=== PATIENT | female | born 1955 | race Caucasian/White ===

== ENCOUNTER 2020-03-24 05:45 | Day surgery (SDC) | payer OTHER ==
--- NOTE | 2020-03-20 11:15 | RAD REPORT ---
EXAM DESCRIPTION: RAD - Chest Pa And Lat (2 Views) - 03/20/2020 10:33 am CLINICAL HISTORY: pre op Chest pain. COMPARISON: CHEST SINGLE VIEW dated 01/25/2015; CHEST PA AND LAT 2 VIEW dated 02/08/2014; CHEST PA AND LAT 2 VIEW dated 06/07/2013; CHEST SINGLE VIEW dated 02/12/2010 FINDINGS: The lungs are mildly emphysematous but clear. The heart is normal in size. No displaced fr actures. IMPRESSION: Mild COPD.
[2020-03-20 12:24] LABS: Absolute Lymphocytes (CBC) 1.5 K/uL (0.7-4.9); Hematocrit 41.4 % (36.0-45.0); Lymphocytes % 21.6 % (15.3-44.8); MPV 10.4 fL (7.6-11.3); RBC Red Blood Cell Count 4.67 M/uL (3.86-4.86)
[2020-03-20 12:36] LABS: Protime INR 0.97
[2020-03-20 12:51] LABS: BUN Blood Urea Nitrogen 9 mg/dL (7-18); Bicarbonate 32 mmol/L (21-32); Glucose Level 71 mg/dL (74-106); Potassium 3.4 mmol/L (3.5-5.1); Sodium Level 141 mmol/L (136-145)
[2020-03-24] MEDS ORDERED: Ringers Lactate 1,000 ML IV ONE ×2 (06:27→07:02)
[2020-03-24] MEDS ORDERED: CEFAZOLIN/SWI 1gm 1 GM/10 ML SYR ONE (06:28)
[2020-03-24] MEDS ORDERED: EPINEPHRINE/PF 1 MG/ML AMP ONE (07:01)
[2020-03-24] MEDS ORDERED: MIDAZOLAM HCL 2 MG/2 ML INJ ONE (07:15)
[2020-03-24] MEDS ORDERED: NS 0.9% VIAL 10 ML ONE (07:15)
[2020-03-24] MEDS ORDERED: LIDOCAINE 2% MPF 5 ML VIAL ONE ×2 (07:15→07:38)
[2020-03-24] MEDS ORDERED: FENTANYL CITR 100 MCG/2 ML ONE (07:15)
[2020-03-24] MEDS ORDERED: ROPLVACAINE HCL 40 ML ONE (07:16)
[2020-03-24] MEDS ORDERED: dexAMETHasone 4 MG/ML VIAL ONE (07:16)
[2020-03-24] MEDS ORDERED: propofoL 200 MG/20 ML VIAL IV ONE (07:38)
[2020-03-24] MEDS ORDERED: ROCURONIUM 50 MG/5 ML VIAL IV ONE (07:38)
[2020-03-24] MEDS ORDERED: KETOROLAC 30 MG/ML INJ ONE (07:38)
[2020-03-24] MEDS ORDERED: ONDANSETRON 4 MG/2 ML VIAL ONE (07:38)
[2020-03-24] MEDS ORDERED: EPHEDRINE SULF 50 MG/ML VIAL ONE (09:07)
--- NOTE | 2020-03-24 10:02 | P.BOP ---
Preoperative diagnosis: left recurrent rotator cuff tear, impingement syndrome Postoperative diagnosis: same Primary procedure: left shoulder arthroscopic rotator cuff repair Secondary procedure: left shoulder arthroscopic biceps and rotator cuff debridmement Other procedure(s): left shoulder arthroscopic subacromial decompression Blueprint Cutter: NONE,NONE Estimated blood loss: 10 cc Specimen: none Findings: see dictation Anesthesia: General Complications: None Implants: 1- 5.5 mm Arthrex corkscrew, 2 - 4.75 mm Arthrex swivelock Fluids & blood products: per anesthesia record Transferred to: Recovery Room Condition: Good
[2020-03-24 10:44] VITALS: TEMP 97.2; O2SAT 98
--- NOTE | 2020-03-24 10:51 | RAD REPORT ---
EXAM DESCRIPTION: RAD - Shoulder 1 View - 03/24/2020 10:23 am FINDINGS: Single-view postop examination shows no fracture or dislocation. Postsurgical changes are present widening the AC joint. No suspicious or unexpected finding. No retained hardware or other postsurgical complication.
[2020-03-24] MEDS ORDERED: HYDROCODONE/APAP 7.5/325 MG TAB ONE (11:01)
[2020-03-24 11:23] VITALS: BP 158/76
--- NOTE | 2020-03-25 01:00 | OP ---
Preoperative Diagnoses: 1. Left rotator cuff tear. 2. Left bicipital tenosynovitis. 3. Left shoulder impingement syndrome. Postoperative Diagnoses: 1. Left shoulder rotator cuff tear. 2. Left shoulder biceps tendon not a rupture. 3. Left shoulder impingement syndrome. Procedures Performed: 1. Left shoulder arthroscopic rotator cuff repair. 2. Left shoulder arthroscopic extensive debridement of biceps tendon and debridement of chronic rotator cuff tear. 3. Left shoulder arthroscopic subacromial decompression. Surgeon: Félix Allan MD Anesthesia: General. Complications: None. Implants: 1. A 5.5 Mm Arthrex corkscrew. 2. A 4.75 mm Arthrex SwiveLock. Indication Of Procedure: Mamta is a 64-year-old female, who presented to my clinic with signs and symptoms, and MRI findings with recurrent rotator cuff tear of her left shoulder, impingement syndrome and bicipital tenosynovitis. The patient failed conservative treatment measures including corticosteroid as well as formal physical therapy. Preoperative MRI demonstrated a retracted rotator cuff tear. There was concern that the tear would be not amenable to repair. The patient has failed conservative treatment measures and given her continued pain and difficulties to aid with activities of daily living, she elects to proceed with operative treatment. She expressed understanding after discussion of the risks and benefits associated with operative treatment and elected to proceed with operative treatment. Description Of Procedure: After informed consent was obtained, the patient was identified in the preoperative holding area. The left upper extremity was marked. The patient was then taken to the PACU where she underwent an interscalene block to the left upper extremity performed by Anesthesia. She was then taken to the operating room, transferred to the operative table in supine fashion, and placed under general LMA anesthesia. She was then placed in the beach chair position with her extremities well padded. The left upper extremity was then examined. The patient had full range of motion with no instability noted of her left shoulder. The left upper extremity was then prepped and draped in usual sterile fashion. A time-out was initiated. The correct patient and procedure were confirmed and identified. The patient did receive her preoperative prophylactic antibiotics. Via the posterior portal position, a spinal needle was introduced into the glenohumeral joint. A 30 cc of normal saline was injected into the glenohumeral joint to distend the capsule. A stab incision was made posteriorly and posterior portal was created. The arthroscope was brought in via the posterior portal position and diagnostic arthroscopy was performed. Under direct visualization, an anterior portal was made and a cannula was placed. The patient was noted to have rupture of her biceps tendon with a large fragment in her biceps tendon anchor. The biceps tendon debridement was then performed using an arthroscopic shaver with the remaining fragment at the biceps anchor and the superior labrum. There was no significant SLAP tear noted and there was no significant anterior and posterior labral tears noted. The subscapularis was found to be intact and stable to probe. There were no loose bodies within the axillary pouch. The patient was noted to have significant tear of her supraspinatus and anterior infraspinatus retracted to the level of the glenoid. There was minimal motion at the supraspinatus as it appeared to be a tear that had increased chronicity. Using elevator and arthroscopic shaver, the rotator cuff tear was then debrided and any adhesions were released from the superior aspect of the glenoid as well as bursal side of the rotator cuff tear. After all the adhesions were released, it was noted that the tear was reducible to the greater tuberosity using a pituitary grasper after lateral portal was created. At that point, it was elected to proceed with thick rotator cuff repair. A stab incision was made just lateral to the acromion and a 5.5 mm Arthrex corkscrew, which was double loaded was placed. The sutures were then passed through the rotator cuff tear in an anterior to posterior fashion and they were tied in a horizontal mattress fashion for medial row fixation. There was good overall reduction and no significant tension on the repair. The sutures were then placed in a crisscross fashion and 2 lateral row anchors were used using 4.75 mm Arthrex SwiveLocks. There was good overall reduction and fixation of the rotator cuff tear into the greater tuberosity. The remaining sutures were then cut. There was noted to be some mild fraying of the coracoacromial ligament and radiofrequency ablator was used to debride it off the undersurface of the acromion and a subacromial decompression using arthroscopic bur. After this was completed, the arthroscopic instruments were then removed without complication. Wounds were irrigated thoroughly with normal saline and sterile dressings were applied. The patient was awakened and transferred to PACU in stable condition. Postoperative Plan: We will proceed with physical therapy at 6 weeks postop for large rotator cuff repair protocol. CV/MODL Voice ID: [id number] Report ID: [id number] MTDD
== END 2020-03-24 11:20 | disposition home or self-care (01) ==
LOC: OR 05:45
PROVIDERS: ATTEND Orthopaedic Surgery Sports Medicine
PROC: 0RHK44Z Insertion of Internal Fixation Device into Left Shoulder Joint, Percutaneous Endoscopic Approach (ICD-10-PCS; 2020-03-24)
PROC: 0RNK4ZZ Release Left Shoulder Joint, Percutaneous Endoscopic Approach (ICD-10-PCS; 2020-03-24)
PROC: 0RBK4ZZ Excision of Left Shoulder Joint, Percutaneous Endoscopic Approach (ICD-10-PCS; 2020-03-24)
PROC: 0LQ24ZZ Repair Left Shoulder Tendon, Percutaneous Endoscopic Approach (ICD-10-PCS; principal; 2020-03-24 07:30)
DX: M75.122 Complete rotator cuff tear or rupture of left shoulder, not specified as traumatic (principal); M75.42 Impingement syndrome of left shoulder; M75.22 Bicipital tendinitis, left shoulder; M75.52 Bursitis of left shoulder; E11.9 Type 2 diabetes mellitus without complications; I10 Essential (primary) hypertension; E03.9 Hypothyroidism, unspecified; F34.1 Dysthymic disorder; E78.00 Pure hypercholesterolemia, unspecified; E04.9 Nontoxic goiter, unspecified; M54.5 Low back pain; E78.2 Mixed hyperlipidemia; F51.01 Primary insomnia; J44.9 Chronic obstructive pulmonary disease, unspecified; Z72.0 Tobacco use; Z20.828 Contact with and (suspected) exposure to other viral communicable diseases; Z79.82 Long term (current) use of aspirin; Z88.8 Allergy status to other drugs, medicaments and biological substances; Z91.040 Latex allergy status; Z86.73 Personal history of transient ischemic attack (TIA), and cerebral infarction without residual deficits; Z82.49 Family history of ischemic heart disease and other diseases of the circulatory system; Z83.3 Family history of diabetes mellitus
CPT/HCPCS: 85025; 80048; 36415; 85610; 85730; 71046; 73020; 29827; 29826; 29823; U0002; J2704; J1100; J0171; J2250; J3010; J2795; J0690; J7120 ×2; J2405